=== PATIENT | female | born 1985 | race Caucasian/White ===

== ENCOUNTER 2018-04-18 07:58 | Inpatient (IN) | payer OTHER ==
[~2018-04-18] VITALS: Ht 172.7 cm; Wt 100.9 kg
[~2018-04-18 07:58] MED LIST: FERR325T18 PO; IBUP-1223 PO; OXYC-302 PO; SENN8.6C2 PO
[2018-04-18 08:08] VITALS: BP 134/79
[2018-04-18] MEDS ORDERED: OXYTOCIN 30U/ 0.9% NaCL 500ML 500 ML IV ONE (08:17)
[2018-04-18] MEDS ORDERED: OXYTOCIN 30U/ 0.9% NaCL 500ML 500 ML IV PRN (08:17)
[2018-04-18] MEDS ORDERED: PREN1TAB60 PO (08:24)
[2018-04-18] MEDS ORDERED: METF500T17 PO (08:24)
[2018-04-18] MEDS ORDERED: TERBUTALINE 1 MG/ML, 1ML IVPush PRN (08:30)
[2018-04-18] MEDS ORDERED: FENTANYL PF 100 MCG/2ML IV PRN (08:30)
[2018-04-18] MEDS ORDERED: FENTANYL PF 100 MCG/2ML IVPush PRN (08:30)
[2018-04-18] MEDS ORDERED: ONDANSETRON 2MG/ML, 2ML IVPush PRN (08:30)
[2018-04-18] MEDS ORDERED: NEWBORN KIT ONE (08:59)
[2018-04-18] MEDS ORDERED: LIDOCAINE/PF 1%, 30ML ONE (09:00)
[2018-04-18] MEDS ORDERED: OXYTOCIN 30U/ 0.9% NaCL 500ML 500 ML ONE ×2 (09:00→20:25)
[2018-04-18 09:16] LABS: BASOPHILS # (AUTO) 0.01 x10^3/uL (0-0.1); BASOPHILS % (AUTO) 0 % (0-1); EOSINOPHILS # (AUTO) 0.03 x10^3/uL (0-0.4); EOSINOPHILS % (AUTO) 1 % (1-7); LYMPHOCYTES # (AUTO) 1.43 x10^3/uL (1-3.4); LYMPHOCYTES % (AUTO) 20 % (22-44); MD NO; MEAN CORPUSCULAR HEMOGLOBIN 30.9 pg (27.0-34.8); MEAN CORPUSCULAR HGB CONC 33.3 g/dL (32.4-35.8); MEAN CORPUSCULAR VOLUME 92.7 fL (80-100); MEAN PLATELET VOLUME 7.4 fL (7.4-10.4); MONOCYTES # (AUTO) 0.37 x10^3/uL (0.2-0.8); MONOCYTES % (AUTO) 5 % (2-9); NEUTROPHILS # (AUTO) 5.46 x10^3/uL (1.8-6.8); NEUTROPHILS % (AUTO) 75 % (42-75); PLATELET COUNT 242 x10^3/uL (130-400); RED BLOOD COUNT 4.07 x10^6/uL (3.82-5.3)
[2018-04-18] MEDS: LACTATED RINGERS 1,000 ML IV SCH ×3 (11:10→14:45)
[2018-04-18] MEDS ORDERED: FENTANYL/BUPIV./NS/PF 250 ML EPIDCONT SCH (13:44)
[2018-04-18] MEDS ORDERED: BUPIVACAINE/PF-EPI 0.25% 1:200K ONE (13:55)
[2018-04-18] MEDS ORDERED: FENTANYL PF 500 MCG, BUPIVACAINE/PF 0.5%, 30ML 62.5 ML in SODIUM CHLORIDE 0.9% 177.5 ML EPIDCONT SCH (14:00)
[2018-04-18] MEDS: OXYTOCIN 30U/ 0.9% NaCL 500ML 500 ML IV SCH (20:29)
[2018-04-18] MEDS ORDERED: HYDROcodone/APAP 5/325 TABLET PO PRN ×2 (20:30)
[2018-04-18] MEDS ORDERED: MISOPROSTOL 200 MCG TABLET PR PRN (20:30)
[2018-04-18] MEDS ORDERED: METHYLERGONOVINE 0.2 MG/ML IM PRN (20:30)
[2018-04-18] MEDS ORDERED: DOCUSATE 100 MG CAPSULE PO PRN (20:30)
[2018-04-18] MEDS ORDERED: CARBOPROST TROMETHAMINE 250 MCG/ML, 1ML IM PRN (20:30)
[2018-04-18] MEDS ORDERED: CALCIUM CARBONATE 500 MG TAB.CHEW PO PRN (20:30)
[2018-04-18] MEDS ORDERED: CEFAZOLIN PMX 2GM/50ML 50 ML IVPB ONE (20:30)
[2018-04-18] MEDS ORDERED: ONDANSETRON 2MG/ML, 2ML IV PRN (20:30)
[2018-04-18] MEDS ORDERED: ACETAMINOPHEN 325 MG TABLET PO PRN (20:30)
[2018-04-18 23:15] VITALS: BP 109/71
[2018-04-19 03:00] VITALS: BP 111/75
[2018-04-19] MEDS: OXYTOCIN 30U/ 0.9% NaCL 500ML 500 ML IV SCH ×2 (05:34→16:29)
[2018-04-19 05:50] LABS: BASOPHILS # (AUTO) 0.02 x10^3/uL (0-0.1); BASOPHILS % (AUTO) 0 % (0-1); EOSINOPHILS # (AUTO) 0.01 x10^3/uL (0-0.4); EOSINOPHILS % (AUTO) 0 % (1-7); LYMPHOCYTES # (AUTO) 1.64 x10^3/uL (1-3.4); LYMPHOCYTES % (AUTO) 13 % (22-44); MD NO; MEAN CORPUSCULAR HEMOGLOBIN 32.2 pg (27.0-34.8); MEAN CORPUSCULAR HGB CONC 34.5 g/dL (32.4-35.8); MEAN CORPUSCULAR VOLUME 93.4 fL (80-100); MEAN PLATELET VOLUME 7.5 fL (7.4-10.4); MONOCYTES # (AUTO) 0.78 x10^3/uL (0.2-0.8); MONOCYTES % (AUTO) 6 % (2-9); NEUTROPHILS # (AUTO) 10.66 x10^3/uL (1.8-6.8); NEUTROPHILS % (AUTO) 81 % (42-75); PLATELET COUNT 219 x10^3/uL (130-400); RED BLOOD COUNT 3.25 x10^6/uL (3.82-5.3); RED CELL DISTRIBUTION WIDTH 13.4 % (9.6-15.2)
[2018-04-19] MEDS: IBUPROFEN 600 MG TABLET PO PRN ×2 (07:43→13:53)
[2018-04-19 07:50] VITALS: BP 121/78
[2018-04-19] MEDS ORDERED: PRENATAL VIT/IRON/FA 1 EACH TABLET PO SCH (09:00)
[2018-04-19 12:35] VITALS: BP 119/70
== END 2018-04-19 18:35 | disposition home or self-care (01) | DRG 807 ==
LOC: LDIP 07:58 → UNDOADMIN 07:58 → 2NW 23:03
PROVIDERS: ADMIT Obstetrics & Gynecology; ATTEND Obstetrics & Gynecology
PROC: 3E033VJ Introduction of Other Hormone into Peripheral Vein, Percutaneous Approach (ICD-10-PCS; principal; 2018-04-18)
PROC: 10E0XZZ Delivery of Products of Conception, External Approach (ICD-10-PCS; 2018-04-18)
PROC: 0KQM0ZZ Repair Perineum Muscle, Open Approach (ICD-10-PCS; 2018-04-18)
PROC: 10907ZC Drainage of Amniotic Fluid, Therapeutic from Products of Conception, Via Natural or Artificial Opening (ICD-10-PCS; 2018-04-18)
PROC: 3E0R3BZ Introduction of Anesthetic Agent into Spinal Canal, Percutaneous Approach (ICD-10-PCS; 2018-04-18)
PROC: 00HU33Z Insertion of Infusion Device into Spinal Canal, Percutaneous Approach (ICD-10-PCS; 2018-04-18)
DX: O70.1 Second degree perineal laceration during delivery (principal); Z37.0 Single live birth; Z3A.39 39 weeks gestation of pregnancy
CPT/HCPCS: 36415; 85025; 86850; 86900; 86923; G0378; J0690; J3010; J3490; J2590; J7050; J7120

== ENCOUNTER 2019-01-26 14:22 | Outpatient (CLI) | payer OTHER | END 2019-01-26 23:59 | disposition home or self-care (01) | LOC: CVU 14:22 | DX: R01.0 Benign and innocent cardiac murmurs (principal); N80.9 Endometriosis, unspecified | CPT/HCPCS: 93306 ==